=== PATIENT | male | born 1945 | race Caucasian/White ===

== ENCOUNTER → 2017-09-06 | Outpatient (CLI) | payer MEDICARE ==
[~2017-09-06] MED LIST: ACYC-57 PO; AMOX250C17 PO; ASCO500C2 PO; ASPI-496 PO; BENA10TA2 PO; CARV6.2512 PO; CHOL20002 PO; DILT180C PO; HYDR-3237 PO; HYDR-3307 PO; LEVE100020 PO; LEVE500T53 PO; LEVO750T26 PO; LOSA50TA6 PO; LOVA40TA2 PO; METO25TA2 PO; PHEN100C4 PO; PHEN50TA4 PO
== END | disposition home or self-care (01) ==
LOC: CVU 12:46
PROVIDERS: ATTEND Family Medicine
DX: M25.572 Pain in left ankle and joints of left foot (principal); I10 Essential (primary) hypertension; E78.00 Pure hypercholesterolemia, unspecified; M79.661 Pain in right lower leg
CPT/HCPCS: 93922

== ENCOUNTER → 2017-12-20 | Outpatient (CLI) | payer MEDICARE | LOC: CFH 14:21 | PROVIDERS: ATTEND Nurse Practitioner Family | DX: R07.82 Intercostal pain (principal) ==

== ENCOUNTER 2019-03-11 17:23 | Inpatient (IN) | payer MEDICARE ==
[~2019-03-11] VITALS: Ht 162.6 cm; Wt 103.0 kg
[2019-03-13 12:57] VITALS: BP 161/83
== END 2019-03-13 17:57 | disposition home or self-care (01) | DRG 309 ==
LOC: ED 19:34 → EDIP 19:38 → 5SO 20:44
PROVIDERS: ADMIT Internal Medicine; ATTEND Internal Medicine
PROC: 5A2204Z Restoration of Cardiac Rhythm, Single (ICD-10-PCS; principal; 2019-03-11)
DX: I48.91 Unspecified atrial fibrillation (principal); D68.59 Other primary thrombophilia; D64.9 Anemia, unspecified; G40.909 Epilepsy, unspecified, not intractable, without status epilepticus; I10 Essential (primary) hypertension; Z88.2 Allergy status to sulfonamides; Z88.8 Allergy status to other drugs, medicaments and biological substances; I20.9 Angina pectoris, unspecified; E11.9 Type 2 diabetes mellitus without complications; E78.00 Pure hypercholesterolemia, unspecified; E78.5 Hyperlipidemia, unspecified; E83.42 Hypomagnesemia; G47.30 Sleep apnea, unspecified; I48.92 Unspecified atrial flutter; Z79.899 Other long term (current) drug therapy; Z87.891 Personal history of nicotine dependence; E11.65 Type 2 diabetes mellitus with hyperglycemia
CPT/HCPCS: 36415; 71045; 78452; 80048; 80053; 83036; 83735; 83880; 84443; 84484; 85025; 85520; 85610; 93005; 93017; 93306; 96374; 96375; 99291; G0378; J1644; J2704; J2785; A9502; C9898; J3475; J7040

== ENCOUNTER → 2019-06-19 | Outpatient (CLI) | payer MEDICARE ==
[~2019-06-19] MED LIST changes: +ACET325T26 PO; +APIX5TAB PO; +ATOR40TA78 PO; -BENA10TA2 PO; +BENA10TA6 PO; +CARB100T3 PO; +CHOL100012 PO; -CHOL20002 PO; +CHOL200052 PO; +DILT120C48 PO; -DILT180C PO; +DILT180C76 PO; -HYDR-3307 PO; +HYDR-36 PO; +HYDR-3652 PO; +KRIL1CAP31 PO; +LOSA50TA14 PO; -LOSA50TA6 PO; +NAPR250T6 PO; +OXCA150T18 PO
== END | disposition home or self-care (01) ==
LOC: CFH 06:57
PROVIDERS: ATTEND Family Medicine
DX: N28.1 Cyst of kidney, acquired (principal); R10.11 Right upper quadrant pain
CPT/HCPCS: 76700

== ENCOUNTER → 2019-10-07 | Outpatient (CLI) | payer MEDICARE ==
[~2019-10-07] MED LIST changes: +BENA10TA59 PO; -BENA10TA6 PO
== END | disposition home or self-care (01) ==
LOC: RAD 14:03
PROVIDERS: ATTEND Family Medicine
DX: M47.816 Spondylosis without myelopathy or radiculopathy, lumbar region (principal); M16.11 Unilateral primary osteoarthritis, right hip
CPT/HCPCS: 72110

== ENCOUNTER 2020-02-21 15:20 | Emergency (ER) | payer MEDICARE ==
[~2020-02-21] VITALS: Ht 162.6 cm; Wt 104.0 kg
[~2020-02-21 15:20] MED LIST changes: +HYDR-3246 PO; -HYDR-36 PO
[2020-02-21 15:33] VITALS: BP 128/75
[2020-02-21 16:00] LABS: BASOPHILS # (AUTO) 0.01 x10^3/uL (0-0.1); BASOPHILS % (AUTO) 0 % (0-1); EOSINOPHILS % (AUTO) 0 % (1-7); LYMPHOCYTES # (AUTO) 1.39 x10^3/uL (1-3.4); LYMPHOCYTES % (AUTO) 21 % (22-44); MD NO; MEAN CORPUSCULAR HGB CONC 33.5 g/dL (33.2-36.2); MEAN PLATELET VOLUME 7.6 fL (7.4-10.4); MONOCYTES # (AUTO) 0.63 x10^3/uL (0.2-0.8); MONOCYTES % (AUTO) 9 % (2-9); NEUTROPHILS # (AUTO) 4.62 x10^3/uL (1.8-6.8); NEUTROPHILS % (AUTO) 69 % (42-75); PLATELET COUNT 278 x10^3/uL (130-400); RED BLOOD COUNT 4.45 x10^6/uL (4.38-5.82); RED CELL DISTRIBUTION WIDTH 13.3 % (9.4-14.8)
[2020-02-21 16:11] LABS: ALBUMIN 3.3 g/dL (3.4-5.0); ANION GAP 7 mmol/L (5-15); CHLORIDE 109 mmol/L (98-107); CREATININE 1.62 mg/dL (0.7-1.3)
[2020-02-21 16:20] LABS: CALCIUM 8.9 mg/dL (8.5-10.1)
== END 2020-02-21 16:50 | disposition home or self-care (01) ==
LOC: ED 16:00
DX: E11.65 Type 2 diabetes mellitus with hyperglycemia (principal); N28.9 Disorder of kidney and ureter, unspecified; R94.31 Abnormal electrocardiogram [ECG] [EKG]; I10 Essential (primary) hypertension; E78.00 Pure hypercholesterolemia, unspecified
CPT/HCPCS: 36415; 71045; 80048; 82040; 85025; 93005; 99285